=== PATIENT | female | born 1985 | race Caucasian/White ===

== ENCOUNTER 2025-10-22 00:18 | Emergency (ER) | payer SELFPAY ==
[~2025-10-22] VITALS: Ht 180.3 cm; Wt 87.0 kg
[2025-10-22 00:33] VITALS: O2SAT 98
[2025-10-22 01:24] LABS: BASOPHILS % 0.5 % (0.0-2.0); EOSINOPHILS % 3.1 % (0.0-5.0); HEMATOCRIT. 34.4 % (36.0-48.0); HEMOGLOBIN. 11.2 g/dL (12.0-16.0); LYMPHOCYTES % 28.9 % (20.0-50.0); MEAN PLATELET VOLUME 8.6 fl (7.4-10.4); MONOCYTES % 7.0 % (2.0-8.0); NEUTROPHILS % 60.5 % (40.0-76.0); PLATELET 259 x1000/uL (130-400); RED BLOOD CELL COUNT 4.04 mill/uL (4.2-5.4); RED CELL DISTRIBUTION WIDTH 15.4 % (11.6-14.6)
[2025-10-22 01:39] LABS: HCG SCREEN NEGATIVE
[2025-10-22 01:41] LABS: CREATININE 0.9 mg/dL (0.6-1.0); UREA NITROGEN BLOOD 7 mg/dL (9-23)
[2025-10-22 01:42] LABS: ETHANOL BLOOD < 10 mg/dL (<10)
[2025-10-22 08:10] VITALS: BP 127/62; PULSE 75; RESP 15; TEMP 37.1; O2SAT 98
== END 2025-10-22 08:25 ==
LOC: ER 00:53
DX: F10.129 Alcohol abuse with intoxication, unspecified (principal); G40.909 Epilepsy, unspecified, not intractable, without status epilepticus; Z90.710 Acquired absence of both cervix and uterus; Z88.5 Allergy status to narcotic agent; Y90.0 Blood alcohol level of less than 20 mg/100 ml
CPT/HCPCS: 36415; 80048; 80320; 84703; 85025; 99285; G0480